=== PATIENT | female | born 1955 | race Hispanic/Latino ===

== ENCOUNTER → 2018-09-02 | Outpatient (CLI) | payer OTHER | END | disposition home or self-care (01) | LOC: RAH 07:36 | PROVIDERS: ATTEND Family Medicine | DX: Z12.31 Encounter for screening mammogram for malignant neoplasm of breast (principal) | CPT/HCPCS: 77067 ==

== ENCOUNTER → 2019-12-01 | Outpatient (CLI) | payer OTHER | END | disposition home or self-care (01) | LOC: RAH 09:26 | PROVIDERS: ATTEND Family Medicine | DX: Z12.31 Encounter for screening mammogram for malignant neoplasm of breast (principal) | CPT/HCPCS: 77067 ==

== ENCOUNTER → 2021-03-21 | Outpatient (CLI) | payer OTHER | END | disposition home or self-care (01) | LOC: RAH 14:18 | PROVIDERS: ATTEND Obstetrics & Gynecology | DX: Z12.31 Encounter for screening mammogram for malignant neoplasm of breast (principal) | CPT/HCPCS: 77067 ==

== ENCOUNTER → 2022-04-19 | Outpatient (CLI) | payer MEDICARE, OTHER | END | disposition home or self-care (01) | LOC: RAH 08:21 | PROVIDERS: ATTEND Family Medicine | DX: Z12.31 Encounter for screening mammogram for malignant neoplasm of breast (principal) | CPT/HCPCS: 77067 ==

== ENCOUNTER → 2023-05-21 | Outpatient (CLI) | payer MEDICARE, OTHER | END | disposition home or self-care (01) | LOC: RAH 09:01 | PROVIDERS: ATTEND Family Medicine | DX: Z12.31 Encounter for screening mammogram for malignant neoplasm of breast (principal) | CPT/HCPCS: 77067 ==

== ENCOUNTER → 2023-05-29 | Outpatient (CLI) | payer OTHER | END | disposition home or self-care (01) | LOC: OIH 11:18 | PROVIDERS: ATTEND Family Medicine | DX: Z13.6 Encounter for screening for cardiovascular disorders (principal) | CPT/HCPCS: 75571 ==

== ENCOUNTER → 2024-05-18 | Outpatient (CLI) | payer MEDICARE | END | disposition home or self-care (01) | LOC: RAH 08:35 | PROVIDERS: ATTEND Family Medicine | DX: M81.0 Age-related osteoporosis without current pathological fracture (principal) | CPT/HCPCS: 77080 ==

== ENCOUNTER → 2024-07-16 | Outpatient (CLI) | payer MEDICARE | END | disposition home or self-care (01) | LOC: RAH 10:55 | PROVIDERS: ATTEND Family Medicine | DX: Z12.31 Encounter for screening mammogram for malignant neoplasm of breast (principal); R92.323 Mammographic fibroglandular density, bilateral breasts; R92.30 Dense breasts, unspecified | CPT/HCPCS: 77063; 77067 ==

== ENCOUNTER → 2024-07-30 | Outpatient (CLI) | payer MEDICARE ==
[2024-07-30 12:35] LABS: CHOLESTEROL 320 mg/dL (<200); HDL CHOLESTEROL 71 mg/dL (35-85); LDL DIRECT 212 mg/dL (0-99); TRIGLYCERIDES 155 mg/dL (30-200)
== END | disposition home or self-care (01) ==
LOC: LAB 08:57
PROVIDERS: ATTEND Internal Medicine Cardiovascular Disease
DX: E78.5 Hyperlipidemia, unspecified (principal)
CPT/HCPCS: 36415; 80061

== ENCOUNTER → 2024-08-03 | Outpatient (CLI) | payer OTHER | END | disposition home or self-care (01) | LOC: RAH 13:10 | PROVIDERS: ATTEND Internal Medicine | DX: Z13.6 Encounter for screening for cardiovascular disorders (principal); R00.2 Palpitations | CPT/HCPCS: 75571 ==

== ENCOUNTER 2024-12-16 06:27 | Day surgery (SDC) | payer MEDICARE ==
[2024-12-13 12:22] VITALS: BP 117/57; PULSE 58; RESP 18; TEMP 97.3
[2024-12-13 12:31] LABS: BASOPHILS # (AUTO) 0.08 K/uL (0.00-0.20); BASOPHILS % (AUTO) 1.1 % (0.0-5.0); EOSINOPHILS # (AUTO) 0.32 K/uL (0.00-0.70); EOSINOPHILS % (AUTO) 4.5 % (0.0-8.0); IMMATURE GRANULOCYTE ABSOLUTE 0.03 K/uL (0-1); LYMPHOCYTES % (AUTO) 28.6 % (21.0-51.0); MEAN CORPUSCULAR HEMOGLOBIN 29.2 pg (27.0-33.0); MEAN CORPUSCULAR HGB CONC 33.2 g/dL (32.0-36.0); MONOCYTES # (AUTO) 0.6 K/uL (0.1-1.0); MONOCYTES % (AUTO) 8.8 % (3.0-13.0); NEUTROPHILS % (AUTO) 56.6 % (40.0-77.0); PLATELET COUNT (AUTO) 222 K/uL (130-400); RED BLOOD CELL COUNT(AUTO) 4.66 MIL/uL (4.00-5.50); RED CELL DISTRIBUTION WIDTH 13.3 % (11.0-15.5)
[2024-12-13 12:41] LABS: INR 0.95 (0.85-1.15); PROTHROMBIN TIME 10.1 SEC (9.6-11.6)
[2024-12-13 12:42] LABS: PARTIAL THROMBOPLASTIN TIME 26.1 SEC (26.3-35.5)
[2024-12-13 13:04] LABS: CREATININE 0.6 mg/dL (0.5-1.0); POTASSIUM 4.5 mmol/L (3.5-5.1)
--- NOTE | 2024-12-13 13:31 | EKG ---
[facility] Test Date: 2024-12-13 Test Time: 12:19:33 Pat Name: JANIE MAYER Department: [facility] Room: Gender: F Broke Handler: [id number] : 1955 Requested By: JANETH ROSEN Order Number: [id number] Reading MD: Fly Hale Measurements Intervals [place] Rate: 54 P: 28 ME: 152 QRS: 33 QRSD: 76 T: 33 QT: 424 QTc: 403 Interpretive Statements Sinus rhythm Compared to ECG 08/11/2016 19:09:43 No significant changes Electronically Signed On 12-14-2024 23:25:49 CDT by Fly Hale Please click the below link to view image of tracing.
[~2024-12-16] VITALS: Ht 154.9 cm; Wt 65.5 kg
[2024-12-16] VITALS (13 sets, daily range): BP systolic 113–141; BP diastolic 29–78; PULSE 66–105; RESP 14–18; TEMP 97.1–97.8
[2024-12-16] MEDS: BUPIvacaine/PF 0.25% 30ML VIAL IJ ONE
[~2024-12-16 06:27] MED LIST: EZET10TA48 PO; LEVO75TA10 PO
[2024-12-16] MEDS ORDERED: LACTATED RINGERS 1000ML IV ONE (07:00)
[2024-12-16] MEDS: ceFAZolin SODIUM 2 GM VIAL ONE (07:08)
[2024-12-16] MEDS: LACTATED RINGERS 1000ML 1,000 ML IV ONE (07:09)
[2024-12-16] MEDS ORDERED: BUPIvacaine/PF 0.25% 30ML VIAL IJ ONE (07:23)
[2024-12-16] MEDS ORDERED: INDOCYANINE GREEN 25 MG VIAL IJ ONE (07:25)
[2024-12-16] MEDS ORDERED: proPOFol 10 MG/ML 20ML VIAL IV ONE (07:37)
[2024-12-16] MEDS ORDERED: dexaMETHasone SOD PHOSPHATE 10MG/ML 1ML VIAL ONE (07:37)
[2024-12-16] MEDS ORDERED: LIDOCAINE HCL MPF 1% 5ML VIAL ONE (07:37)
[2024-12-16] MEDS ORDERED: MIDAZOLAM HCL 1 MG/ML 2ML VIAL ONE (07:37)
[2024-12-16] MEDS ORDERED: ondanSETRON 4MG INJ ONE (07:37)
[2024-12-16] MEDS ORDERED: rocuRONium bROMide 10MG/1ML 5ML VL ONE ×2 (07:37→08:49)
[2024-12-16] MEDS ORDERED: FENTanyl CITRate PF 50 MCG/1 ML 2ML VIAL ONE ×2 (07:37→09:09)
[2024-12-16] MEDS ORDERED: ePHEDrine SULFate 50 MG/ML AMPULE ONE (09:02)
[2024-12-16] MEDS ORDERED: GLYCOPYRROLATE 0.2 MG/ML 5 ML VIAL ONE (09:38)
[2024-12-16] MEDS ORDERED: NEOSTIGMINE METHYLSULFATE 1MG/ML IV ONE (09:38)
--- NOTE | 2024-12-16 10:13 | OP ---
Operative Note: DATE OF PROCEDURE: 12/16/24 SURGEON: JANETH ROSEN MD PROGRAM PROFESSIONAL: Frederick Rosen MD p.a. C ANESTHESIA: General and local ANESTHESIOLOGIST/ASSISTANT STORE MANAGER SALES: [employer] [facility] [facility] [place] anesthesia team PREOPERATIVE DIAGNOSIS: Symptomatic cholelithiasis POSTOPERATIVE DIAGNOSIS: As above SYNOPSIS: Cholecystectomy with IC green cholangiogram performed without incident PROCEDURE: Robotic assisted cholecystectomy with IC green intraoperative cholangiogram utilizing firefly visual technology ESTIMATED BLOOD LOSS: Minimal, less than 15 cc INDICATIONS: As above DESCRIPTION OF PROCEDURE: After standard precautions and preparations were undertaken a Veress needle and optical trocar were used to enter the abdominal cavity. All other instruments were placed under direct vision. The robotic system was docked in the standard fashion. We retracted the fundus of the gallbladder cephalad and began dissecting around the infundibulum. Critical view of safety was achieved by identifying a single cystic artery and cystic duct. The duct was able to be traced back to the junction of the common hepatic and common bile duct utilizing the injection of IC-Green and firefly visual technology. There was no sign of filling defects or obstruction within the ductal system. The clip twister doffer was used to clip both structures. Both structures were divided monopolar cautery was used to remove the attachments between the gallbladder and gallbladder fossa. The specimen was placed in an Endo-Catch bag and removed from the abdominal cavity without incident. At the end of the case all instrument counts were verified as correct including needles and sponges. Patient tolerated the procedure well. JANETH ROSEN MD Dec 16, 2024 10:13
--- NOTE | 2024-12-16 10:33 | PN ---
GENERAL SURGERY PROGRESS NOTE Date/Time Patient Seen: [ 12/16/2024 10:30 a.m.] Problem List: [ ] Interval History: [ Postop day 0. Pain tolerable with p.r.n. medication.] Physical Examination: ABD: [Incisions clean, dry and intact, Dermabond in place Vital Signs (last 8hr) Date Time Temp Pulse Resp B/P (MAP) Pulse Ox O2 Delivery O2 Flow Rate FiO2 12/16/24 10:20 83 15 127/68 100 Nonrebreathing Mask 10.0 100 12/16/24 10:15 87 14 133/69 100 Nonrebreathing Mask 10.0 100 12/16/24 10:10 91 16 126/71 100 Nonrebreathing Mask 10.0 100 12/16/24 10:05 97 15 134/75 100 Nonrebreathing Mask 10.0 100 12/16/24 10:00 97.7 105 15 141/78 100 Nonrebreathing Mask 10.0 100 12/16/24 07:10 97.5 74 18 115/72 98 Room Air 21 Laboratory: [ ] Diagnostics / Radiology: [Copy/Paste Echos/Imaging Report here] Impression and Plan: [Plan is for discharge later today as long as patient tolerating p.o. intake, ambulatory and pain under control. Discussed with patient and family. They understand and agree. ] XAVI ROSEN Dec 16, 2024 10:33
== END 2024-12-16 10:30 | disposition home or self-care (01) ==
LOC: DAH 06:27
PROVIDERS: ATTEND Surgery
DX: K80.12 Calculus of gallbladder with acute and chronic cholecystitis without obstruction (principal); E03.9 Hypothyroidism, unspecified; E78.5 Hyperlipidemia, unspecified; Z86.0100 Personal history of colon polyps, unspecified; Z88.1 Allergy status to other antibiotic agents; Z88.8 Allergy status to other drugs, medicaments and biological substances; Z79.01 Long term (current) use of anticoagulants; Z79.899 Other long term (current) drug therapy
CPT/HCPCS: 80048; 85025; 85610; 85730; 86850; 86900; 86901; 36415; 93005; 47563; 00790; 88304; A6260; A4663; J7030; A4215 ×2; J7120; J3010 ×2; J1100; J0665 ×2; J3490 ×5; J2250; J2704; J2405; J2710; J0690; A4930; A4222; A4221; A4216; A4223 ×2; A4600

== ENCOUNTER → 2025-07-19 | Outpatient (CLI) | payer MEDICARE ==
[~2025-07-19] MED LIST changes: -EZET10TA48 PO; +EZET10TA80 PO
== END | disposition home or self-care (01) ==
LOC: RAH 09:38
PROVIDERS: ATTEND Family Medicine
DX: Z12.31 Encounter for screening mammogram for malignant neoplasm of breast (principal)
CPT/HCPCS: 77063; 77067